=== PATIENT | female | born 1955 | race Caucasian/White ===

== ENCOUNTER → 2022-01-12 | Outpatient (CLI) | payer MEDICARE, OTHER ==
[~2022-01-12] MED LIST: AMOCLA875 PO; B-COMPLEX WITH1 EAC2; B12-FOLIC ACID1 EACH; CLIN300 PO; Calcium Acetat667 MG; FISH OIL 1,2001 EAC7; HYDACE5 PO; RXHYDACE PO; VITAMIN D310 MC4
== END | disposition home or self-care (01) ==
LOC: LAB SHORT 11:45 → LAB 11:45
DX: N39.0 Urinary tract infection, site not specified (principal)
CPT/HCPCS: 87086

== ENCOUNTER 2022-07-19 06:20 | Day surgery (SDC) | payer MEDICARE, OTHER ==
[~2022-07-19] VITALS: Ht 160 cm; Wt 101.6 kg
[2022-07-19] MEDS ORDERED: HYDCHL25 PO (06:42)
== END 2022-07-19 08:07 | disposition home or self-care (01) ==
LOC: ORSCSDS 06:20
PROVIDERS: Student in an Organized Health Care Education/Training Program
PROC: 08DJ3ZZ Extraction of Right Lens, Percutaneous Approach (ICD-10-PCS; principal; 2022-07-19 07:30)
DX: H25.13 Age-related nuclear cataract, bilateral (principal); Z87.891 Personal history of nicotine dependence; E66.9 Obesity, unspecified; Z68.39 Body mass index [BMI] 39.0-39.9, adult; Z79.82 Long term (current) use of aspirin; Z79.899 Other long term (current) drug therapy
CPT/HCPCS: A9270; J2001; J2250; J3010; J7040; V2632

== ENCOUNTER 2023-07-21 11:18 | Day surgery (SDC) | payer MEDICARE, OTHER ==
--- NOTE | 2023-06-20 09:09 | NUR ---
06/20/23 0909 VALDEMAR MANLEY PT WAS ON BIG BOARD BUT NOT A PT TODAY. RN CHARTED ON WRONG PT AND CORRECDTED RIOR TO PROCEDURE. ALL CHARTING ON THIS PT FOR 06/20 23 MADE BY [facility].TCR WAS INCORREDT.
[~2023-07-21] VITALS: Ht 160 cm; Wt 99.8 kg
[~2023-07-21 11:18] MED LIST changes: +HYDCHL25 PO; +IBUP200 PO; +MULVITA PO
[2023-07-21 13:31] VITALS: BP 160/76
== END 2023-07-21 14:06 | disposition home or self-care (01) ==
LOC: ORSCSDS 11:18
PROVIDERS: Orthopaedic Surgery
PROC: 01N50ZZ Release Median Nerve, Open Approach (ICD-10-PCS; principal; 2023-07-21 12:30)
DX: G56.03 Carpal tunnel syndrome, bilateral upper limbs (principal); E66.9 Obesity, unspecified; Z68.39 Body mass index [BMI] 39.0-39.9, adult; Z79.82 Long term (current) use of aspirin
CPT/HCPCS: J0690; J2250; J3010